=== PATIENT | male | born 1985 | race Caucasian/White ===

== ENCOUNTER → 2021-02-20 03:06 | Outpatient (CLI) | payer OTHER, SELFPAY ==
[2021-02-20 18:07] LABS: SARS-CoV-2 RNA PCR Negative
== END ==
PROVIDERS: PCP Family Medicine; Visit Provider Nurse Practitioner Family
DX: R68.89 Other general symptoms and signs (principal); Z20.822 Contact with and (suspected) exposure to COVID-19
CPT/HCPCS: C9803; U0003; U0005

== ENCOUNTER → 2021-02-26 02:39 | Outpatient (CLI) | payer OTHER, SELFPAY ==
[2021-02-26 17:01] LABS: SARS-CoV-2 RNA PCR Negative
== END ==
PROVIDERS: PCP Family Medicine; Visit Provider Family Medicine
DX: R51.9 Headache, unspecified (principal)
CPT/HCPCS: C9803; U0003; U0005

== ENCOUNTER 2022-01-14 10:24 | Emergency (ER) | payer OTHER, SELFPAY ==
--- NOTE | ~2022-01-14 | XR_ITS ---
EXAMINATION: XR chest 2V DATE: 01/14/2022 11:10 INDICATION: Cough and body aches TECHNIQUE: PA and lateral views of the chest are obtained. COMPARISON: None available FINDINGS: There are minimal airspace opacities in the right lower lobe. No pleural effusion or pneumo thorax. The cardiomediastinal silhouette is normal. The visualized bones and soft tissues are unremar kable. IMPRESSION: 1. Minimal airspace opacities of the right lower lobe, consistent with atelectasis versus pneumonia. Reviewed, dictated and finalized at location B. IMPRESSION: 1. Minimal airspace opacities of the right lower lobe, consistent with atelecta sis versus pneumonia.
[2022-01-14 10:39] VITALS: BP 132/89; PULSE 74; RESP 18; TEMP 36.8; O2SAT 98
--- NOTE | 2022-01-14 10:47 | ED.BACK ---
HPI - Back Pain/Injury General Chief Complaint: Back Pain/Injury Stated Complaint: back and neck pain Time Seen by Provider: 01/14/22 10:47 History of Present Illness HPI Narrative: Wesly Leon is a 36 yo male with PMH of asthma and GERD, who comes to express care with c/o Related Data Allergies Allergy/AdvReac Type Severity Reaction Status Date / Time No Known Allergies Allergy Verified 09/13/21 10:35 [facility] Past Medical History Medical History BMI 23.0-23.9, adult Family History Family History Father No problems noted. Mother Lupus Sibling No problems noted. 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 Gender identity (if verbalized by the patient): Male Course Vital Signs Vital signs: Vital Signs Temperature 98.2 F 01/14/22 10:39 Pulse Rate 74 01/14/22 10:39 Respiratory Rate 18 01/14/22 10:39 Blood Pressure 132/89 01/14/22 10:39 Pulse Oximetry 98 01/14/22 10:39 Oxygen Delivery Room Air 01/14/22 10:39 Temperature 98.2 F 01/14/22 10:39 Pulse Rate 74 01/14/22 10:39 Respiratory Rate 18 01/14/22 10:39 Blood Pressure 132/89 01/14/22 10:39 Pulse Oximetry 98 01/14/22 10:39 Oxygen Delivery Room Air 01/14/22 10:39 Discharge Plan Discharge Prescriptions: No Action omeprazole 20 mg capsule,delayed release(DR/EC) 20 mg PO BID Qty: 60 1RF montelukast [Singulair] 10 mg tablet 10 mg PO DAILY Qty: 30 3RF albuterol sulfate [ProAir HFA] 90 mcg/actuation HFA aerosol inhaler 2 puff INHALATION Q4H PRN (Reason: shortness of breath or wheezing) Qty: 8.5 2RF Follow-up/Referrals: Joesph Bowser MD [Primary Care Provider] -
--- NOTE | 2022-01-14 10:52 | ED.URI ---
HPI - URI/Sore Throat General Chief Complaint: Upper Respiratory Infection Stated Complaint: back and neck pain Time Seen by Provider: 01/14/22 10:47 History of Present Illness HPI Narrative: Wesly Leon is a 36 yo male with PMH of asthma and GERD, who comes to express care with 2 weeks of cough, runny nose sinus congestion with thick yellow discharge,chills. He has taken Mucinex Related Data Allergies Allergy/AdvReac Type Severity Reaction Status Date / Time No Known Allergies Allergy Verified 01/14/22 10:52 Review of Systems Review of Systems: CONSTITUTIONAL: Subjective fever, chills, sweats. EYES: Denies visual changes, redness, discharge. ENT: Denies rhinorrhea, has congestion, sore throat, otalgia. CARDIOVASCULAR: Denies chest pain, palpitations, edema. RESPIRATORY: Denies dyspnea, wheezing, has cough GASTROINTESTINAL: Denies abdominal pain, nausea, vomiting, diarrhea. GENITOURINARY: Denies dysuria, hematuria, abnormal discharge SKIN: Denies rash or itching. NEUROLOGIC: Denies numbness, or focal weakness. PSYCHIATRIC: Denies anxiety or depression. PMFSH Past Medical History Medical History BMI 23.0-23.9, adult Family History Family History Father No problems noted. Mother Lupus Sibling No problems noted. 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 Gender identity (if verbalized by the patient): Male Comments At time of signature, I agree with nursing past medical, surgical, social and family history. There is no relevant family history pertinent to the presenting complaint. Exam Narrative: GENERAL: This is a well-nourished, well-developed patient, in mild distress. HEAD: normocephalic, atraumatic. EYES: PERRL. Sclera clear/white. Vision is grossly intact. EARS: External ears normal, auditory canals clear and without drainage, TMs normal without perforation. Hearing grossly intact. NOSE: External nose normal without nasal discharge, nares without redness, no rhinorrhea. THROAT: Mucous membranes moist, posterior pharynx mild erythema NECK: Neck supple, non-tender CARDIOVASCULAR: Regular rate and rhythm without murmurs, gallops, or rubs. RESPIRATORY: Clear to auscultation. Breath sounds equal bilaterally. No wheezes, rales, or rhonchi. GASTROINTESTINAL: Not done SKIN: warm, intact with no suspicious lesions or rash, good texture and turgor. NEURO: awake, alert, and oriented to person, place and time. There were no obvious focal neurologic abnormalities. Steady gait EXTREMITIES: Normal range of motion. BACK: Nontender without deformity, states he feels tender breathing Course Course Emergency Course: Patient causes up to 2 weeks of symptoms of upper respiratory infection and states he is having back pain now took some ibuprofen this morning Chest x-ray shows minimal air space opacities of the right lower lobe consistent with atelectasis versus pneumonia Started on Zithromax along with prednisone and Tessalon Perles Level of Care: Express Care Visit Vital Signs Vital signs: Vital Signs Temperature 98.2 F 01/14/22 10:39 Pulse Rate 74 01/14/22 10:39 Respiratory Rate 18 01/14/22 10:39 Blood Pressure 132/89 01/14/22 10:39 Pulse Oximetry 98 01/14/22 10:39 Oxygen Delivery Room Air 01/14/22 10:39 Temperature 98.2 F 01/14/22 10:39 Pulse Rate 74 01/14/22 10:39 Respiratory Rate 18 01/14/22 10:39 Blood Pressure 132/89 01/14/22 10:39 Pulse Oximetry 98 01/14/22 10:39 Oxygen Delivery Room Air 01/14/22 10:39 MDM - URI/Sore Throat Differential Diagnosis Differential diagnosis: Likely upper respirat
== END 2022-01-14 11:29 | disposition home or self-care (01) ==
PROVIDERS: Emergency Provider Nurse Practitioner; PCP Family Medicine
DX: J18.9 Pneumonia, unspecified organism (principal); J45.909 Unspecified asthma, uncomplicated
CPT/HCPCS: 71046; 99213; G0463

== ENCOUNTER 2022-03-11 16:31 | Emergency (ER) | payer OTHER, SELFPAY ==
[2022-03-11 16:43] VITALS: BP 123/80; PULSE 74; RESP 18; TEMP 36.4; O2SAT 100
--- NOTE | 2022-03-11 16:57 | ED.URI ---
HPI - URI/Sore Throat General Chief Complaint: Upper Respiratory Infection Stated Complaint: sorethroat Source: patient Mode of arrival: ambulatory History of Present Illness HPI Narrative: This is a 36-year-old male who presented to our urgent care with complaints of a sore throat. According to patient his symptoms started yesterday he notes that his right tonsil seems to give him more pain. He did take ibuprofen at home to relieve his symptoms which was affective. The patient denies SOB, CP, palpitation, extremity numbness, lightheadedness, dizziness, constipation, diarrhea, chills, or fever. Related Data Home Medications Medication Instructions Recorded Confirmed No Home Medications 03/11/22 03/11/22 Allergies Allergy/AdvReac Type Severity Reaction Status Date / Time No Known Allergies Allergy Verified 03/11/22 16:46 Review of Systems Review of Systems: A 14 organ system Review of Systems was performed and pertinent positives included in the HPI, otherwise remaining ROS is negative. [facility] Past Medical History Medical History BMI 23.0-23.9, adult Family History Family History Father No problems noted. Mother Lupus Sibling No problems noted. 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 Gender identity (if verbalized by the patient): Male Exam Narrative: GENERAL: This is a well-nourished, well-developed patient, in no apparent distress. HEAD: normocephalic, atraumatic. EYES: PERRL. Sclera clear/white. Vision is grossly intact. EARS: External ears normal, auditory canals clear and without drainage, TMs normal without perforation. Hearing grossly intact. NOSE: External nose normal with no obvious nasal discharge, nares without redness, no rhinorrhea. THROAT: Mucous membranes moist, posterior pharynx with slight redness and edema. NECK: Neck supple, non-tender without lymphadenopathy, masses or thyromegaly. CARDIOVASCULAR: Regular rate and rhythm without murmurs, gallops, or rubs. RESPIRATORY: Clear to auscultation. Breath sounds equal bilaterally. No wheezes, rales, or rhonchi. GASTROINTESTINAL: Abdomen soft, non-tender, nondistended. Bowel sounds are active. No hepato-splenomegaly, or palpable masses. No guarding. SKIN: warm, intact with no suspicious lesions or rash, good texture and turgor. NEURO: awake, alert, and oriented to person, place and time. There were no obvious focal neurologic abnormalities. EXTREMITIES: Normal range of motion. No edema. No calf tenderness. Course Course Level of Care: Express Care Visit Vital Signs Vital signs: Vital Signs Temperature 97.6 F 03/11/22 16:43 Pulse Rate 74 03/11/22 16:43 Respiratory Rate 18 03/11/22 16:43 Blood Pressure 123/80 03/11/22 16:43 Pulse Oximetry 100 03/11/22 16:43 Oxygen Delivery Room Air 03/11/22 16:43 Temperature 97.6 F 03/11/22 16:43 Pulse Rate 74 03/11/22 16:43 Respiratory Rate 18 03/11/22 16:43 Blood Pressure 123/80 03/11/22 16:43 Pulse Oximetry 100 03/11/22 16:43 Oxygen Delivery Room Air 03/11/22 16:43 MDM - URI/Sore Throat Differential Diagnosis Differential diagnosis: Likely upper respiratory infection, sinusitis and other (cough) Lab Data Labs: Strep Screen Presumptive Negative *(Reference Range: Negative)* Discharge Plan Discharge Clinical Impression: Acute sore throat Patient Disposition: Home, Self-Care Condition: Stable Instructions: Antibiotic Form Additional Instructions: Sore throat What care is needed at home? Ask your doctor w
== END 2022-03-11 17:00 | disposition home or self-care (01) ==
PROVIDERS: Emergency Provider Nurse Practitioner; PCP Family Medicine
DX: J02.9 Acute pharyngitis, unspecified (principal)
CPT/HCPCS: 87081; 87880; 99213; G0463

== ENCOUNTER 2022-03-13 09:44 | Emergency (ER) | payer OTHER, SELFPAY ==
--- NOTE | 2022-03-13 09:46 | ED.URI ---
HPI - URI/Sore Throat General Chief Complaint: Upper Respiratory Infection Stated Complaint: sore throat, cough, white spots on throat,fever Time Seen by Provider: 03/13/22 09:46 Source: patient Mode of arrival: ambulatory Limitations: no limitations History of Present Illness HPI Narrative: Wesly is a 36-year-old male patient presenting to the clinic today with complaints of sore throat, cough, white spots on his throat, and fever pain x2 days. He reports he was seen on a Monday in [facility] and was swabbed for strep and it was negative in the cultures come came back negative however he is still having symptoms that are gradually getting worse. MD elicited complaint: sore throat and nasal congestion Related Data Allergies Allergy/AdvReac Type Severity Reaction Status Date / Time No Known Allergies Allergy Verified 03/11/22 16:46 Review of Systems Review of Systems: Pertinent positives per HPI. Patient denies any rash, headache, visual changes, dizziness, shortness of breath, chest pain, palpitations, nausea, vomiting, diarrhea, constipation, abdominal pain, or any urinary issues. PMFSH Past Medical History Medical History BMI 23.0-23.9, adult Family History Family History Father No problems noted. Mother Lupus Sibling No problems noted. 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 Gender identity (if verbalized by the patient): Male Comments At the time of my signature, I reviewed and agree with the nursing past medical, surgical, social, and family history. There is no relevant family history pertinent to the patient complaint. Exam Narrative: General: Well-developed, well nourished, in no apparent distress Head: Normocephalic, atraumatic Eyes: Pupils equally round and reactive to light bilaterally, EOM intact, sclera and conjunctive clear, no discharge, lids normal Ears: TMs intact and clear, ear canals clear, no drainage, grossly hearing normal. Nose: Nares patent, no discharge, no inflammation, no sinus tenderness. Mouth: Oral pharynx without lesions or masses, good dentition, MMM. Oropharynx red, bilateral tonsillar swelling with white exudate Neck: Supple, trachea midline, enlargement of anterior cervical nodes, no thyroid masses or goiter palpable. Cardio: Regular rate and rhythm, s1 and s2 normal, no murmur appreciated. Resp: Clear to auscultation bilaterally, no rhonchi, rales, wheezing or rubs Course Course Emergency Course: Portions of this record may have been created with voice recognition software. Level of Care: Express Care Visit Vital Signs Vital signs: Vital Signs Temperature 36.9 C 03/13/22 09:58 Pulse Rate 94 03/13/22 09:58 Respiratory Rate 16 03/13/22 09:58 Blood Pressure 118/66 03/13/22 09:58 Pulse Oximetry 99 03/13/22 09:58 Temperature 36.9 C 03/13/22 09:58 Pulse Rate 94 03/13/22 09:58 Respiratory Rate 16 03/13/22 09:58 Blood Pressure 118/66 03/13/22 09:58 Pulse Oximetry 99 03/13/22 09:58 Vital signs reviewed MDM - URI/Sore Throat MDM Narrative Medical decision making narrative: At the time of visit patient is resting comfortably on exam table. Influenza and strep screen was obtained. Influenza testing was negative strep was positive. Will place patient on a prescription for some amoxicillin. Supportive measures were discussed with the patient he voiced understanding of discharge instructions and agrees to treatment plan. Differential Diagnosis Differential diagnosis: Likely upper respiratory infection, otitis media, sinusitis, viral infection,
[2022-03-13 09:58] VITALS: BP 118/66; PULSE 94; RESP 16; TEMP 36.9; O2SAT 99
== END 2022-03-13 10:20 | disposition home or self-care (01) ==
PROVIDERS: Emergency Provider Nurse Practitioner Family; PCP Family Medicine
DX: J02.0 Streptococcal pharyngitis (principal)
CPT/HCPCS: 87804; 87880; 99213; G0463

== ENCOUNTER 2022-07-08 22:18 | Emergency (ER) | payer OTHER, SELFPAY ==
--- NOTE | ~2022-07-08 | XR_ITS ---
EXAMINATION: XR ankle RT min 3V DATE: 07/08/2022 22:52 INDICATION: Right ankle pain and swelling post injury TECHNIQUE: Anteroposterior, oblique, mortise, and lateral views of the right ankle were obtained. COMPARISON: None. FINDINGS: Prominent soft tissue swelling about the lateral malleolus and extending anterior to the ankle. Align ment is normal. No fracture. Joint spaces are well maintained. Small Achilles calcaneal spur. Likely ankle joint effusion with increased density anterior to the tibiotalar joint line.. IMPRESSION: 1. Soft tissue swelling and likely right ankle joint effusion. No acute osseous abnormality. Reviewed, dictated and finalized at location A. 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
[2022-07-08 22:21] VITALS: BP 146/93; PULSE 90; RESP 18; TEMP 36.9; O2SAT 100
[2022-07-08 23:25] VITALS: BP 138/84; PULSE 80; RESP 18; TEMP 37.4; O2SAT 98
--- NOTE | 2022-07-08 23:28 | ED.LOWEXIN ---
HPI - Extremity Injury (Lower) General Chief Complaint: Extremity Injury, Lower Stated Complaint: ankle injury Time Seen by Provider: 07/08/22 23:11 Source: patient Mode of arrival: ambulatory Limitations: no limitations History of Present Illness HPI Narrative: Patient is a 36 y/o male who presents to the ED with c/o R ankle pain. Patient reports he was at the [facility] earlier today with his children when he missed a step and rolled his right ankle, inversion injury. He developed swelling to his right lateral ankle almost immediately afterwards. He has been able to ambulate some since the accident, but complains of significant pain with this. He has not taken anything for pain and does not want anything currently. Denies any other injuries. Denies numbness, tingling. No pain in right foot. Related Data Allergies Allergy/AdvReac Type Severity Reaction Status Date / Time No Known Allergies Allergy Verified 03/11/22 16:46 Review of Systems Review of Systems: CONSTITUTIONAL: Denies fever, chills, or sweats. MUSCULOSKELETAL: See HPI. NEUROLOGIC: Denies tingling, numbness, or weakness. All systems reviewed & are unremarkable except as noted in HPI and below PMFSH Past Medical History Medical History (Updated 07/08/22 @ 23:38 by Angelita Ramirez PA-C) BMI 23.0-23.9, adult Surgical History Surgical History (Updated 07/08/22 @ 23:38 by Angelita Ramirez PA-C) No pertinent past surgical history Family History Family History Father No problems noted. Mother Lupus Sibling No problems noted. 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 Gender identity (if verbalized by the patient): Male Exam Narrative: GENERAL: Well appearing, well-nourished, non-toxic, in no acute distress. HEAD: Normocephalic, atraumatic. NECK: Supple. No adenopathy, no masses. RESPIRATORY: Airway patent, respirations nonlabored. CARDIOVASCULAR: Regular rate and rhythm without murmurs, rubs, or gallops. Pedal pulses 2+ and equal bilaterally. MUSCULOSKELETAL: Limited range of motion of right ankle due to pain. Moderate amount of swelling to right lateral malleoli with diffuse tenderness, tenderness extending into anterior ankle/mortise. Minimal tenderness to posterior medial malleoli. No tenderness along metatarsals, 5th MT. No tenderness to knee. SKIN: Warm, dry, normal color. No rashes. NEURO: A&O X3. Speech clear. Cranial nerves II-XII grossly intact. No ataxic movements. PSYCHIATRIC: Appropriate mood and affect. Normal interaction. Course Vital Signs Vital signs: Vital Signs Temperature 98.5 F 07/08/22 22:21 Pulse Rate 90 07/08/22 22:21 Respiratory Rate 18 07/08/22 22:21 Blood Pressure 146/93 H 07/08/22 22:21 Pulse Oximetry 100 07/08/22 22:21 Oxygen Delivery Room Air 07/08/22 22:21 Temperature 99.3 F 07/08/22 23:25 Pulse Rate 80 07/08/22 23:25 Respiratory Rate 18 07/08/22 23:25 Blood Pressure 138/84 07/08/22 23:25 Pulse Oximetry 98 07/08/22 23:25 Oxygen Delivery Room Air 07/08/22 22:21 MDM - Extremity Injury (Lower) MDM Narrative Medical decision making narrative: Patient's injury is consistent with musculoskeletal etiology. No signs of neurologic or vascular compromise on physical examination. Compartments are soft without signs of compartment syndrome. XR right ankle showing soft tissue swelling with joint effusion, no acute osseous abnormality. Pain is consistent with exam and injury. Patient is felt to be stable for discharge home and further outpatient management and treatment. Steve dsouza
== END 2022-07-09 00:03 | disposition home or self-care (01) ==
PROVIDERS: Emergency Provider Physician Assistant; PCP Family Medicine
DX: S93.401A Sprain of unspecified ligament of right ankle, initial encounter (principal); X50.0XXA Overexertion from strenuous movement or load, initial encounter
CPT/HCPCS: 73610; 99283